=== PATIENT | male | born 1995 | race Two or more races ===

== ENCOUNTER 2021-06-20 14:14 | Emergency (ER) | payer MEDICAID ==
[~2021-06-20] VITALS: Ht 167.6 cm; Wt 101.6 kg
[2021-06-20 15:21] VITALS: BP 130/71
== END 2021-06-20 16:06 | disposition home or self-care (01) ==
LOC: ER 14:14
DX: S61.211D Laceration without foreign body of left index finger without damage to nail, subsequent encounter (principal); X58.XXXD Exposure to other specified factors, subsequent encounter

== ENCOUNTER 2022-02-01 14:35 | Emergency (ER) | payer MEDICAID, OTHER ==
[~2022-02-01] VITALS: Ht 165.1 cm; Wt 93.0 kg
[2022-02-01] MEDS ORDERED: KETOROLAC TROMETH 30 MG/ML 1ML VIAL IV ONE (15:15)
[2022-02-01] MEDS ORDERED: LACTATED RINGER'S 1,000 ML IV ONE (15:15)
[2022-02-01 15:21] LABS: Urine Bacteria NONE SEEN /hpf (None Seen); Urine Blood Negative /uL (Negative); Urine Specific Gravity 1.012 (1.001-1.035); Urine WBC <1 /hpf (0 - 3)
[2022-02-01 16:16] LABS: Basophils # (auto) 0.1 10 ^3/uL (0-0.2); Basophils % (auto) 0.7 % (0.0-2.0); Eosinophils # (auto) 0.4 10 ^3/uL (0-0.8); Hemoglobin 14.6 g/dL (13.5-17.5); Lymphocytes # (auto) 2.9 10 ^3/uL (0.4-5.4); Lymphocytes % (auto) 29.8 % (10.0-50.0); Mean Corpuscular Hemoglobin 30.4 pg (28.0-32.0); Mean Corpuscular Hgb Conc. 34.7 g/dL (32.0-36.0); Mean Corpuscular Volume 87.6 fL (80.0-100.0); Monocytes # (auto) 0.7 10 ^3/uL (0-1.3); Monocytes % (auto) 7.6 % (0.0-12.0); Neutrophils # (auto) 5.7 10 ^3/uL (1.6-8.6); Neutrophils % (auto) 57.9 % (37.0-80.0); Nucleated Red Blood Cells % 0.2 %; Red Cell Distribution Width 13.3 % (11.8-14.3); White Blood Cell 9.8 10^3/uL (4.4-10.8)
[2022-02-01 16:32] LABS: Albumin 3.6 g/dL (3.4-5.0); BUN/Creatinine Ratio 10.8; Calcium 8.6 mg/dL (8.5-10.1); Potassium 3.7 mmol/L (3.5-5.1)
[2022-02-01 16:55] LABS: Bilirubin, Total 0.3 mg/dL (0.2-1.0)
[2022-02-01 17:29] VITALS: BP 122/60
[2022-02-01] MEDS ORDERED: METHOCARBAMOL 500 MG TAB PO ONE (17:45)
[2022-02-01] MEDS ORDERED: KETOROLAC TROMETH 60MG/2ML VIAL IM ONE (17:45)
== END 2022-02-01 18:00 | disposition home or self-care (01) ==
LOC: ER 14:35
DX: M62.830 Muscle spasm of back (principal); R10.11 Right upper quadrant pain
CPT/HCPCS: 36415; 80053; 81001; 85025; J1885

== ENCOUNTER 2024-11-09 09:59 | Inpatient (IN) | payer MEDICAID, OTHER ==
[~2024-11-09] VITALS: Ht 165.1 cm; Wt 119.0 kg
[2024-11-09 10:20] VITALS: PULSE 107; RESP 50; O2SAT 100
[2024-11-09] MEDS: SODIUM CHLORIDE 0.9% 500 ML IV ONE (11:06)
--- NOTE | 2024-11-09 11:09 | DVH ---
CHEST RADIOGRAPH Indication: sob Technique: Single frontal view of the chest was obtained Comparison: None FINDINGS: Lines and Tubes: None Lungs: No focal consolidation. Pleura: No effusion. No pneumothorax. Cardiomediastinal contours: Unremarkable Bones: No acute osseous abnormality. IMPRESSION: 1. No radiographic evidence of acute cardiopulmonary disease. HS:Y
[2024-11-09 11:25] LABS: Basophils # (auto) 0.1 10 ^3/uL (0-0.2); Basophils % (auto) 0.3 % (0.0-2.0); Eosinophils # (auto) 0.2 10 ^3/uL (0-0.8); Eosinophils % (auto) 1.2 % (0.0-7.0); Hematocrit 50.5 % (41.0-53.0); Hemoglobin 17.1 g/dL (13.5-17.5); Lymphocytes # (auto) 1.3 10 ^3/uL (0.4-5.4); Mean Corpuscular Hemoglobin 30.5 pg (28.0-32.0); Mean Corpuscular Volume 89.9 fL (80.0-100.0); Monocytes # (auto) 1.1 10 ^3/uL (0-1.3); Monocytes % (auto) 5.7 % (0.0-12.0); Neutrophils # (auto) 16.5 10 ^3/uL (1.6-8.6); Neutrophils % (auto) 85.8 % (37.0-80.0); Nucleated Red Blood Cells % 0.1 %; Platelet Count (auto) 364 10^3/uL (140-450); Red Blood Cells 5.62 10^6/uL (4.5-5.90); Red Cell Distribution Width 13.6 % (11.8-14.3); White Blood Cell 19.3 10^3/uL (4.4-10.8)
--- NOTE | 2024-11-09 11:30 | DVH ---
INDICATION: pain TECHNIQUE: Multiple real-time sonographic images were obtained of the right upper quadrant. COMPARISON: None FINDINGS: The liver demonstrates slightly increased echogenicity without focal mass lesions. The live r measures 16.8 cm. There is no intrahepatic or extrahepatic ductal dilatation. The common duct papo ures 6 mm. The gallbladder is without evidence of stone or sludge. The gallbladder wall measures 1 mm and is wi thin normal limits. Boiler Coverer Helper notes a negative sonographic chang's sign. The right kidney measures 12.1 cm. The right kidney is normal in contour, size, and shape. The echo genicity is normal. There is no hydronephrosis. The pancreas is not well visualized due to overlying bowel gas. IMPRESSION: 1. No sonographic evidence of gallstones or acute cholecystitis. 2. CBD at upper limit of normal in size. 3. Mildly increased echogenicity of the liver, nonspecific, but most commonly seen in the setting of hepatic steatosis. HS:Y
--- NOTE | 2024-11-09 11:32 | ED.PDOC ---
SOB-HPI HPI Comments 29y M who presents to the ED for chief complaint of shortness of breath. Pt states earlier this AM, he started to have epigastric abdominal pain while using restroom, he felt nauseaous and had vomiting episode. Pt states he tried to go back to rest but states he felt he was going to vomit again and states he went back to restroom and had vomit that was "white, green and red." Pt states after vomiting episode, he felt weak and as if he was going to have syncopal and states he fell to his knees and was able to catch himself before he had a syncopal episode and called father who brought him to the ED. Pt states now in the ED, he denies this near syncopal in the past and denies any recent sick contacts or changes to diet. Pt in the ED, states he started to suddenly have shortness of breath and states he is having 10/10 pain to this lower extremity. Pt is alert and oriented x 4 and able to answer all questions. Pt otherwise denies any other symptoms at this time. Chief Complaint: Shortness of Breath Time Seen by MD: 11:27 Primary Care Provider: UNKNOWN Reviewed notes: Nurses Notes Information Source: Patient Mode of Arrival: Wheelchair Brought in by: father Severity: Moderate Timing: Minutes, Hours Duration: Since onset Context: At Rest, With Light Exertion PE Risk Factors: None History of: None Prehospital treatment: None Modifying Factors: Rest Associated Signs and Symptoms: None If cough with SOB: Clear, White, Green, Brown Past Medical History PAST MEDICAL HISTORY: Denies Surgical History: Denies all surgeries Family History Family History: Reviewed,noncontributory to illness Social History Smoker: Non-Smoker, Secondhand Alcohol: Occasionally Drugs: Denies Drug Use Lives In: Home Constitutional: denies: chills, diaphoresis, fatigue, fever, malaise, sweats, weakness, others EENTM: denies: blurred vision, double vision, ear bleeding, ear discharge, ear drainage, ear pain, ear ringing, eye pain, eye redness, hearing loss, mouth pain, mouth swelling, nasal discharge, nose bleeding, nose congestion, nose pain, photophobia, tearing, throat pain, throat swelling, voice changes, others Respiratory: reports: shortness of breath; denies: cough, hemoptysis, orthopnea, SOB at rest, SOB with excertion, stridor, wheezing, others Cardiovascular: denies: chest pain, dizzy spells, diaphoresis, Dyspnea on exertion, edema, irregular heart beat, left arm pain, lightheadedness, palpitations, PND, syncope, others Gastrointestinal: reports: abdominal pain, nausea, vomiting; denies: abdomen distended, blood streaked bowels, constipated, diarrhea, dysphagia, difficulty swallowing, hematemesis, melena, poor appetite, poor fluid intake, rectal bleeding, rectal pain, others Genitourinary: denies: burning, dysuria, flank pain, frequency, hematuria, incontinence, penile discharge, penile sore, pain, testicle pain, testicle swelling, urgency, others Neurological: denies: fainting, headache, left sided numbness, left sided weakness, numbness, paresthesia, pre-existing deficit, right sided numbness, right sided weakness, seizure, speech problems, tingling, tremors, weakness, others Musculoskeletal: denies: back pain, gout, joint pain, joint swelling, muscle pain, muscle stiffness, neck pain, others Integumetry: denies: bruises, change in color, change in hair/nails, dryness, laceration, lesions, lumps, rash, wounds, others Allergic/Immunocompromised: denies: Difficulty Healing, Frequent Infections, Hives, Itching, others Hematologic/Lymphatic: denies: anemia, blood clots, easy bleeding, easy bruising, swollen glands, others Endocrine: denies: excessive hunger, excessive sweating, excessive thirst, excessive urination, flushing, intolerance to cold, intolerance to heat, unexplained weight gain, unexplained weight loss, others Psychiatric: denies: anxiety, bipolar disorder, depression, hopeless, panic disorder, schizophrenia, sleepless, suicidal, others All Other Systems: Reviewed and Negative Physical Exam General Appearance: Moderate Distress HEENT: Normal ENT Inspection, Pharynx Normal, TMs Normal Neck: Full Range of Motion, Non-Tender, Normal, Normal Inspection Respiratory: Chest Non-Tender, Lungs Clear, No Accessory Muscle Use, No Respiratory Distress, Normal Breath Sounds Cardiovascular: No Edema, No JVD, No Murmur, No Gallop, Tachycardia Breast Exam: Deferred Gastrointestinal: Epigastric, No Organomegaly, No Pulsatile Mass, Normal Bowel Sounds, Soft, Tenderness Genitalia: Deferred Pelvic: Deferred Rectal: Deferred Extremities: No calf tenderness, Normal capillary refill, Normal inspection, Normal range of motion, Non-tender, No pedal edema Musculoskeletal : Apperance: Normal Neurologic: Alert, mail caller II-XII nml as Tested, Motor Weakness, Normal Affect, Normal Mood, No Sensory Deficits Cerebellar Function: Normal Reflexes: Normal Skin: Dry, Normal Color, Warm Lymphatic: No Adenopathy Was a procedure done? Was a procedure done?: No Differential Dx Differential Diagnosis: CHF, Pneumonia, Pulmonary Embolism, Respiratory Distress Comments COVID, pancreatitis, X-Ray, Labs, Meds, VS Vital Signs Date Time Temp Pulse Resp B/P (MAP) Pulse Ox O2 Delivery O2 Flow Rate FiO2 11/09/24 12:00 100 24 136/69 (91) 98 11/09/24 11:00 103 29 130/89 (103) 100 11/09/24 10:20 107 50 100 Room Air* 0 21 11/09/24 10:13 97.5 133 30 165/102 (123) 100 Lab Test 11/09/24 11:10 11/09/24 10:20 Range/Units SARS-CoV-2 Antigen (Rapid) Negative NEGATIVE White Blood Count 19.3 H 4.4-10.8 10^3/uL Red Blood Count 5.62 4.5-5.90 10^6/uL Hemoglobin 17.1 13.5-17.5 g/dL Hematocrit 50.5 41.0-53.0 % Mean Corpuscular Volume 89.9 80.0-100.0 fL Mean Corpuscular Hemoglobin 30.5 28.0-32.0 pg Mean Corpuscular Hemoglobin Concent 34.0 32.0-36.0 g/dL Red Cell Distribution Width 13.6 11.8-14.3 % Platelet Count 364 140-450 10^3/uL Mean Platelet Volume 8.5 6.9-10.8 fL Neutrophils (%) (Auto) 85.8 H 37.0-80.0 % Lymphocytes (%) (Auto) 7.0 L 10.0-50.0 % Monocytes (%) (Auto) 5.7 0.0-12.0 % Eosinophils (%) (Auto) 1.2 0.0-7.0 % Basophils (%) (Auto) 0.3 0.0-2.0 % Neutrophils # (Auto) 16.5 H 1.6-8.6 10 ^3/uL Lymphocytes # (Auto) 1.3 0.4-5.4 10 ^3/uL Monocytes # (Auto) 1.1 0-1.3 10 ^3/uL Eosinophils # (Auto) 0.2 0-0.8 10 ^3/uL Basophils # (Auto) 0.1 0-0.2 10 ^3/uL Nucleated Red Blood Cells 0.1 % D-Dimer, Quantitative 0.29 0.0-0.49 mg/L FEU Sodium Level 140 136-145 mmol/L Potassium Level 3.8 3.5-5.1 mmol/L Chloride Level 105 98-107 mmol/L Carbon Dioxide Level 20 20-31 mmol/L Anion Gap 15 5-15 Blood Urea Nitrogen 13 9-23 mg/dL Creatinine 0.87 0.700-1.30 mg/dL Glomerular Filtration Rate Calc 118 >90 mL/min BUN/Creatinine Ratio 14.9 10.0-20.0 Serum Glucose 112 H 74-106 mg/dL Calcium Level 9.8 8.7-10.4 mg/dL Total Bilirubin 0.8 0.2-1.0 mg/dL Aspartate Amino Transferase (AST) 16 13-40 U/L Alanine Aminotransferase (ALT) 22 7-40 U/L Alkaline Phosphatase 75 46-116 U/L Total Protein 7.8 5.7-8.2 g/dL Albumin 4.8 3.2-4.8 g/dL Lipase 67 H 12-53 U/L Current Medications Medications (Trade) Dose Ordered Sig/David Route Start Time Stop Time Status Last Admin Sodium Chloride 500 ml @ 500 mls/hr Q1H ONCE IV 11/09/24 11:00 11/09/24 11:59 DC 11/09/24 11:06 CHEST RADIOGRAPH IMPRESSION: 1. No radiographic evidence of acute cardiopulmonary disease. The ultrasound of the gallbladder shows: IMPRESSION: 1. No sonographic evidence of gallstones or acute cholecystitis. 2. CBD at upper limit of normal in size. 3. Mildly increased echogenicity of the liver, nonspecific, but most commonly seen in the setting of hepatic steatosis. IV Hep-Lock was established and the patient was given normal saline at a 500 cc bolus The lipase level is 67 The patient was still having some persistent pain so at this time the patient will be admitted to the hospitalist The patient's CBC shows an elevated white blood cell count of 19.3 The rest of the CBC is within normal limits. The patient was also remain tachycardic The patient was being admitted to the hospitalist at this time Images Reviewed?: Images reviewed and evaluated by me Time of 1ST Reevaluation: 12:00 Reevaluation 1ST: Unchanged Patient Education/Counseling: Diagnosis, Treatment Family Education/Counseling: Diagnosis, Treatment Additional Information I reviewed the following notes from patient's past medical encounters: The following tests were ordered, and results were reviewed by me: CBC, CMP, D- dimer, chest x-ray, UA, orthostatics, IV fluids, EKG x 1, COVID test, lipase, ga llbladder US, Additional Information was gathered from interviewing the following independent historians: father I reviewed and agreed with the following test results read by other providers: radiologist I discussed treatment and results with medical personnel and: patient Departure 1 Departure Time of Disposition: 12:40 Impression: Primary Impression: Abdominal pain of unknown etiology Additional Impressions: Tachycardia Generalized weakness Disposition: ADMITTED INPATIENT Admit to: Tele Condition: Fair Critical Care Note Critical Care Time?: No Stability Stability form required: No Heart Score Heart Score: Heart Score Response (Comments) Value History N/A 0 EKG N/A 0 Age N/A 0 Risk Factors N/A 0 Troponin N/A 0 Total 0 I personally scribed for VITALIY PARSON MD ([email or web address]) on 11/09/24 at 11:32. Electronically submitted by Juarez Mckeon ([email or web address]). VITALIY PARSON MD Nov 09, 2024 11:32
[2024-11-09 11:38] LABS: Alanine Aminotransferase 22 U/L (7-40); Alkaline Phosphatase 75 U/L (46-116); Anion Gap 15 (5-15); Aspartate Aminotransferase 16 U/L (13-40); Bilirubin, Total 0.8 mg/dL (0.2-1.0); Calcium 9.8 mg/dL (8.7-10.4); Chloride 105 mmol/L (98-107); Potassium 3.8 mmol/L (3.5-5.1); Sodium 140 mmol/L (136-145); Total Protein 7.8 g/dL (5.7-8.2)
[2024-11-09 11:57] LABS: COVID19 ANTIGEN SOFIA FIA NEGATIVE (NEGATIVE)
[2024-11-09 12:00] LABS: Albumin 4.8 g/dL (3.2-4.8); Carbon Dioxide 20 mmol/L (20-31); Glucose 112 mg/dL (74-106); Lipase 67 U/L (12-53)
[2024-11-09 12:12] LABS: BUN/Creatinine Ratio 14.9 (10.0-20.0); Blood Urea Nitrogen 13 mg/dL (9-23)
[2024-11-09] MEDS ORDERED: ONDANSETRON HCL 4 MG/2 ML VIAL IV PRN (13:30)
[2024-11-09] MEDS ORDERED: ACETAMINOPHEN 325 MG TAB PO PRN (13:30)
[2024-11-09] MEDS ORDERED: MORPHINE SULFATE INJ 2 MG/ml SYRG IV PRN (13:30)
[2024-11-09] MEDS ORDERED: NITROGLYCERIN 0.4 MG SL TAB SL PRN (13:30)
[2024-11-09] MEDS ORDERED: DOCUSATE SOD 100 MG CAP PO PRN (13:30)
--- NOTE | 2024-11-09 13:43 | DVHHP2 ---
History of Present Illness Reason for Visit: Shortness of breath History of Present Illness Dick Hernandez is a 29-year-old male with no significant past medical history, who comes in due to do nausea, vomiting, and diarrhea. Patient states he felt okay this morning when he got up for work. Shortly after arriving at work his stomach began to hurt and he needed to have a bowel movement. He had diarrhea, then needed to vomit. States he felt better for a few minutes, then needed to go back to the bathroom. He had diarrhea again, then vomited 3 times. He states while vomiting he felt like he was going to pass out. He grabbed the safety bar and went down to his knees. States he did not lose consciousness or hit his head. He then had his dad take him to the ER. While waiting in the ER waiting room he states that he began to feel weak again, he felt like he was going to fall out of the chair, started to slide out of it, then the next thing he remembers is people standing over him telling him to wake up. Upon arrival to his bed in ER he was very tachypneic and tachycardic. On assessment he remains tachycardic and slightly tachypneic. Past Surgical History: None Family History: None Smoke: No ALCOHOL: occassional Drugs: None Lives: Roommate Domestic Violence: Neg Review of Systems Constitutional: No: Fever, Chills, Sweats, Weakness, Malaise, Other Eyes: No: Pain, Vision change, Conjunctivae inflammation, Eyelid inflammation, Other, Redness ENT: No: Ear pain, Ear discharge, Nose pain, Nose discharge, Nose congestion, Mouth pain, Mouth swelling, Throat pain, Throat swelling, Other Respiratory: Shortness of breath, SOB with excertion; No: Cough, Dry, Wheezing, Hemoptysis, Pleuritic Pain, Sputum, Wheezing, Other Cardiovascular: No: Chest Pain, Palpitations, Orthopnea, Paroxysmal Noc. Dyspnea, Edema, Lt Headedness, Other Gastrointestinal: Nausea, Vomiting, Abdominal Pain, Diarrhea; No: Constipation, Melena, Hematochezia, Other Genitourinary: No Dysuria, No Frequency, No Incontinence, No Hematuria, No Retention, No Other Musculoskeletal: No: other, neck pain, shoulder pain, arm pain, back pain, hand pain, leg pain, foot pain Skin: No: Rash, Lesions, Jaundice, Bruising, Other Neurological: No: Weakness, Numbness, Incoordination, Change in speech, Confusion, Seizures, Other Allergies: Coded Allergies: NO KNOWN ALLERGIES (Unverified , 08/04/11) Medications Current Medications Medications Dose Ordered Sig/David Route Start Time Stop Time Status Last Admin Dose Admin Acetaminophen/ Hydrocodone Bitart 1 tab Q4HP PRN PO 11/09/24 13:30 UNV Ondansetron HCl 4 mg Q4HP PRN IV 11/09/24 13:30 UNV Exam Vital Signs Vital Signs Date Time Temp Pulse Resp B/P (MAP) Pulse Ox O2 Delivery O2 Flow Rate FiO2 11/09/24 12:41 107 11/09/24 12:00 24 136/69 (91) 98 11/09/24 10:20 Room Air* 0 21 11/09/24 10:13 97.5 General Appearance: Alert, Oriented X3, Cooperative, mild distress HEENT: Atraumatic, PERRLA Respiratory: Clear to auscultation, Normal air movement Cardiovascular: Normal S1, Normal S2, Other (Tachycardia) Abdominal: Normal bowel sounds, Soft, Other (epigastric pain, nausea) Extremities: No clubbing, No cyanosis, No edema, Normal pulses Skin: No rashes, No breakdown, No significant lesion Neuro: Normal gait, Normal speech, Strength at 5/5 X4 ext Psych/Mental Status: Mental status NL, Mood NL Labs/Xrays Labs Test 11/09/24 11:10 11/09/24 10:20 Range/Units SARS-CoV-2 Antigen (Rapid) Negative NEGATIVE White Blood Count 19.3 H 4.4-10.8 10^3/uL Red Blood Count 5.62 4.5-5.90 10^6/uL Hemoglobin 17.1 13.5-17.5 g/dL Hematocrit 50.5 41.0-53.0 % Mean Corpuscular Volume 89.9 80.0-100.0 fL Mean Corpuscular Hemoglobin 30.5 28.0-32.0 pg Mean Corpuscular Hemoglobin Concent 34.0 32.0-36.0 g/dL Red Cell Distribution Width 13.6 11.8-14.3 % Platelet Count 364 140-450 10^3/uL Mean Platelet Volume 8.5 6.9-10.8 fL Neutrophils (%) (Auto) 85.8 H 37.0-80.0 % Lymphocytes (%) (Auto) 7.0 L 10.0-50.0 % Monocytes (%) (Auto) 5.7 0.0-12.0 % Eosinophils (%) (Auto) 1.2 0.0-7.0 % Basophils (%) (Auto) 0.3 0.0-2.0 % Neutrophils # (Auto) 16.5 H 1.6-8.6 10 ^3/uL Lymphocytes # (Auto) 1.3 0.4-5.4 10 ^3/uL Monocytes # (Auto) 1.1 0-1.3 10 ^3/uL Eosinophils # (Auto) 0.2 0-0.8 10 ^3/uL Basophils # (Auto) 0.1 0-0.2 10 ^3/uL Nucleated Red Blood Cells 0.1 % D-Dimer, Quantitative 0.29 0.0-0.49 mg/L FEU Sodium Level 140 136-145 mmol/L Potassium Level 3.8 3.5-5.1 mmol/L Chloride Level 105 98-107 mmol/L Carbon Dioxide Level 20 20-31 mmol/L Anion Gap 15 5-15 Blood Urea Nitrogen 13 9-23 mg/dL Creatinine 0.87 0.700-1.30 mg/dL Glomerular Filtration Rate Calc 118 >90 mL/min BUN/Creatinine Ratio 14.9 10.0-20.0 Serum Glucose 112 H 74-106 mg/dL Calcium Level 9.8 8.7-10.4 mg/dL Total Bilirubin 0.8 0.2-1.0 mg/dL Aspartate Amino Transferase (AST) 16 13-40 U/L Alanine Aminotransferase (ALT) 22 7-40 U/L Alkaline Phosphatase 75 46-116 U/L Total Protein 7.8 5.7-8.2 g/dL Albumin 4.8 3.2-4.8 g/dL Lipase 67 H 12-53 U/L Multiple real-time sonographic images were obtained of the right upper quadrant. COMPARISON: None FINDINGS: The liver demonstrates slightly increased echogenicity without focal mass lesions. The liver measures 16.8 cm. There is no intrahepatic or extrahepatic ductal dilatation. The common duct measures 6 mm. The gallbladder is without evidence of stone or sludge. The gallbladder wall measures 1 mm and is within normal limits. Reptile Keeper notes a negative sonographic chang's sign. The right kidney measures 12.1 cm. The right kidney is normal in contour, size, and shape. The echogenicity is normal. There is no hydronephrosis. The pancreas is not well visualized due to overlying bowel gas. IMPRESSION: 1. No sonographic evidence of gallstones or acute cholecystitis. 2. CBD at upper limit of normal in size. 3. Mildly increased echogenicity of the liver, nonspecific, but most commonly seen in the setting of hepatic steatosis. CHEST RADIOGRAPH FINDINGS: Lines and Tubes: None Lungs: No focal consolidation. Pleura: No effusion. No pneumothorax. Cardiomediastinal contours: Unremarkable Bones: No acute osseous abnormality. IMPRESSION: 1. No radiographic evidence of acute cardiopulmonary disease. Assessment/Plan Assessment/Plan Assessment: Abdominal pain of unknown etiology, Syncopal episodes, Possible gastritis, Leukocytosis, Plan: Admit to Tele, GI consult, Cardiology consult, Consider neurology consult for syncopal episode, IV hydration, IV antibiotics, Carotid duplex bilateral, TSH, A1c, Fall risk, Plan discussed with: Patient My Orders Orders - MELVIN LEIVA HIGHER LEVEL TEACHING ASSISTANT Procedure Category Date Status Time Admit ADMIT 11/09/24 Transmitted 13:21 Code Status CODE 11/09/24 Transmitted 13:21 Hydrocodone-Acet PHA 11/09/24 Logged 5/325mg Tab ([place] 13:30 Ondansetron Hcl PHA 11/09/24 Transmitted (Zofran) 13:30 Docusate Sodium PHA 11/09/24 Transmitted Capsule (Colace 13:30 Fall Risk Precautions TONYA 11/09/[address] 13:21 Complete Blood Count LAB 11/10/24 Verified 04:00 Comprehensive LAB 11/10/24 Verified Metabolic Panel 04:00 Carotid Duplx W Color US 11/09/24 Logged DOP 13:21 Condition: Serious TONYA 11/09/24 In Process 13:21 Acetaminophen Tablet PHA 11/09/24 Transmitted (Tylenol Tablet) 13:30 Nitroglycerin PHA 11/09/24 Transmitted Sublingual (Ntrostat 13:30 Morphine Sulfate PHA 11/09/24 Transmitted Injection 13:30 Stat Ekg For Chest TONYA 11/09/24 In Process Pain 13:21 Notify Of Changes TONYA 11/09/24 In Process From Base 13:21 Chief Technologist For TONYA 11/09/24 In Process 24 Hours 13:21 Emergency Dysrhythmia [facility] 11/09/24 In Process Protocol 13:21 Rhythm Strips Once [facility] 11/09/24 In Process Every Shift 13:21 Oxygen By Nasal RT 11/09/24 Transmitted Cannula 13:21 * Gi Dvh Acidity Tester CONS 11/09/24 Transmitted 13:21 * Cardiology Consult CONS 11/09/24 Transmitted 13:21 Date of Service: Nov 09, 2024 Billing Provider: MELVIN LEIVA Common Visit Codes: [id number] INP/OBS CARE (MOD) MELVIN LEIVA Nov 09, 2024 13:43
[2024-11-09] MEDS: SODIUM CHLORIDE 0.9% 1,000 ML IV ONE (14:21)
--- NOTE | 2024-11-09 14:29 | DVH ---
Carotid Duplex Date: 11/09/2024 02:00 PM Clinical History: Syncopal episodes Comparison: None Technique: Duplex Doppler evaluation of the extracranial carotid and vertebral arteries including color Doppler and spectral/pulsed waveform analysis was performed. Findings: RIGHT SIDE: The peak systolic velocities are 103 cm/s in the distal CCA and 93 cm/s in the proximal ICA.The ICA/C CA ratio is less than 1. The external carotid artery is patent with peak systolic velocity of 138 cm/s proximally. There is appropriate antegrade flow in the right vertebral artery. LEFT SIDE: The peak systolic velocities are 104 cm/s in the distal CCA and 93 cm/s in the proximal ICA.. The IC A/CCA ratio is less than 1. The external carotid artery is patent with peak systolic velocity of 136 cm/s proximally. There is appropriate antegrade flow in the left vertebral artery. IMPRESSION: 1. No hemodynamically significant stenosis noted in the right carotid system. 2. No hemodynamically significant stenosis noted in the left carotid system. 3. Reference: Radiology 2003; [id number] HS:Y
[2024-11-09] MEDS ORDERED: cefTRIAXone 1GM/50ML D5W 50 ML IV ONE (14:30)
[2024-11-09] MEDS: cefTRIAXone 1GM/50ML D5W 50 ML IV SCH (14:40)
--- NOTE | 2024-11-09 14:41 | DVHINCON2 ---
Date Seen: Nov 09, 2024 Referring Physician MONTSE Bryant Reason for Consultation Syncopal episode History of Present Illness This is a 29-year-old male patient who presents to emergency room with multiple chief complaints. The patient reports that on his way to work this morning at approximately 8:00 a.m. he began to experience epigastric pain. He reports shortly after having to use the restroom in which he noted new onset of diarrhea. Shortly after that, the patient reports feeling nauseous then had an episode where he vomited. While at work, the patient continued to feel abdominal pain and generalized weakness. He states that he had multiple episodes of emesis. While at work he reports grabbing onto a hand rail and having an assisted fall in which he did not hit his head or lose consciousness. The patient called his father and was brought to the emergency room for further evaluation. While in the emergency room waiting area, he reports feeling short of breath. Subsequently, he has another syncopal episode, but this time loss consciousness and only remembers waking up to people surrounding him. Cardiology has now been consulted for syncopal episodes. Initial twelve lead electrocardiogram reveals sinus tachycardia with notable Q-waves to inferior leads. Patient denies any significant past medical history. Past Medical History Denies all past medical history Past Surgical History Denies all surgeries Family History Family history reviewed. Social History Occasional social alcohol use Denies any illicit drug use Denies any tobacco use Allergies: Coded Allergies: NO KNOWN ALLERGIES (Unverified , 08/04/11) Home Meds Denies taking any prescribed home medications Current Medications Current Medications Medications (Trade) Dose Ordered Sig/David Route PRN Reason Start Time Stop Time Status Last Admin Acetaminophen/ Hydrocodone Bitart ([place] 5/325MG Tab) 1 tab Q4HP PRN PO MODERATE PAIN (4-6 PAIN SCALE) 11/09/24 13:30 Ondansetron HCl (Zofran) 4 mg Q4HP PRN IV NAUSEA / VOMITING 11/09/24 13:30 Docusate Sodium (Colace Capsule) 100 mg BIDPRN PRN PO FOR CONSTIPATION 11/09/24 13:30 Acetaminophen (Tylenol Tablet) 650 mg Q6HP PRN PO PAIN SCALE 1-3 OR TEMP>100.4 11/09/24 13:30 Nitroglycerin (Ntrostat Sublingual) 0.4 mg Q5MINP PRN SL FOR CHEST PAIN 11/09/24 13:30 Morphine Sulfate 2 mg Q30M PRN IV FOR CHEST PAIN 11/09/24 13:30 Metronidazole 100 ml @ 100 mls/hr Q8HR IV 11/09/24 14:00 Ceftriaxone Sodium 50 ml @ 100 mls/hr DAILY@09 IV 11/09/24 14:02 Review of Systems Constitutional: Generalized weakness Ears, Nose, & Throat: No symptom reported Eyes: No symptom reported Neurological: Syncope Pulmonary/Respiratory: Shortness of breath Cardiovascular: No symptom reported Gastrointestinal: Diarrhea, nausea and vomiting Genitourinary: No symptom reported Musculoskeletal: No symptom reported Skin: No symptom reported Psychiatric: No symptom reported Endocrine: No symptom reported Hematologic/Lymphatic: No symptom reported Vital Signs Vital Signs Date Time Temp Pulse Resp B/P (MAP) Pulse Ox O2 Delivery O2 Flow Rate FiO2 11/09/24 12:41 107 11/09/24 12:00 136/69 (91) 98 11/09/24 10:20 Room Air* 0 21 11/09/24 10:13 97.5 Physical Exam General Appearance: Cooperative. Morbidly obese Pulmonary/Respiratory: Clear, bilateral breaths sounds. Cardiovascular/Chest: Regular rate and rhythm. Peripheral Pulses: 2+ Radial (R). 2+ Radial (L). 2+ Pedal (R). 2+ Pedal (L) Abdominal Exam: Normal bowel sounds. Ankle Exam: Negative ankle edema Lower extremities: Negative lower extremity edema Neuro/Mental Status: A/OX4, coherent. Thoughts/Psych: Normal thought pattern. Appropriate mood and affect. Good judgment and insight. Appearance: No acute distress. Skin Exam: Normal inspection. Normal color. Warm and dry. Labs/Diagnostic Data Labs Test 11/09/24 11:10 11/09/24 10:20 Range/Units SARS-CoV-2 Antigen (Rapid) Negative NEGATIVE White Blood Count 19.3 H 4.4-10.8 10^3/uL Red Blood Count 5.62 4.5-5.90 10^6/uL Hemoglobin 17.1 13.5-17.5 g/dL Hematocrit 50.5 41.0-53.0 % Mean Corpuscular Volume 89.9 80.0-100.0 fL Mean Corpuscular Hemoglobin 30.5 28.0-32.0 pg Mean Corpuscular Hemoglobin Concent 34.0 32.0-36.0 g/dL Red Cell Distribution Width 13.6 11.8-14.3 % Platelet Count 364 140-450 10^3/uL Mean Platelet Volume 8.5 6.9-10.8 fL Neutrophils (%) (Auto) 85.8 H 37.0-80.0 % Lymphocytes (%) (Auto) 7.0 L 10.0-50.0 % Monocytes (%) (Auto) 5.7 0.0-12.0 % Eosinophils (%) (Auto) 1.2 0.0-7.0 % Basophils (%) (Auto) 0.3 0.0-2.0 % Neutrophils # (Auto) 16.5 H 1.6-8.6 10 ^3/uL Lymphocytes # (Auto) 1.3 0.4-5.4 10 ^3/uL Monocytes # (Auto) 1.1 0-1.3 10 ^3/uL Eosinophils # (Auto) 0.2 0-0.8 10 ^3/uL Basophils # (Auto) 0.1 0-0.2 10 ^3/uL Nucleated Red Blood Cells 0.1 % D-Dimer, Quantitative 0.29 0.0-0.49 mg/L FEU Sodium Level 140 136-145 mmol/L Potassium Level 3.8 3.5-5.1 mmol/L Chloride Level 105 98-107 mmol/L Carbon Dioxide Level 20 20-31 mmol/L Anion Gap 15 5-15 Blood Urea Nitrogen 13 9-23 mg/dL Creatinine 0.87 0.700-1.30 mg/dL Glomerular Filtration Rate Calc 118 >90 mL/min BUN/Creatinine Ratio 14.9 10.0-20.0 Serum Glucose 112 H 74-106 mg/dL Calcium Level 9.8 8.7-10.4 mg/dL Total Bilirubin 0.8 0.2-1.0 mg/dL Aspartate Amino Transferase (AST) 16 13-40 U/L Alanine Aminotransferase (ALT) 22 7-40 U/L Alkaline Phosphatase 75 46-116 U/L Total Protein 7.8 5.7-8.2 g/dL Albumin 4.8 3.2-4.8 g/dL Lipase 67 H 12-53 U/L Assessment Syncope likely secondary to vasovagal episode Rule out structural heart disease ?Viral gastritis Dyslipidemia, newly diagnosed Morbid obesity Plan/Recommendation We will continue following plan/recommendations (Dr. Huggisn): We will obtain a transthoracic echocardiogram to evaluate cardiac function. Patient syncope likely secondary to vasovagal episode from dehydration. Bilateral carotid duplex negative for any significant stenosis in the right or left carotid system. The patient was found to have dyslipidemia, we will initiate aggressive statin therapy. In the setting of an unremarkable echocardiogram, there is no further inpatient cardiac workup indicated this time. The patient should have cardiac workup in the outpatient setting given notable Q-waves to inferior leads seen on twelve lead electrocardiogram. Thank you for allowing us to care for this patient. Please call with any questions or concerns. Critical care time spent: 41 minutes This medical document was created using an electronic medical record system with voice recognition software and computerized dictation system. Although this document has been carefully reviewed, there might still be some phonetic and typographical errors. Occasional wrong-word or ``sound-alike substitutions may have occurred due to the inherent limitations of voice recognition software. These areas are purely typographical due to imperfections of the software programs and do not reflect any compromise in the patient's medical care. Please read the chart carefully and recognize, using context, where these substitutions have occurred. Plan discussed with: Patient Date of Service: Nov 09, 2024 Billing Provider: TAZ HUGGINS MD Cardiology Common Codes: [id number] INP/OBS CARE (High) Cardiology Consultation Codes: [id number] CONSULT <45MIN TERA ASHBY Nov 09, 2024 14:41
[2024-11-09 15:01] LABS: Urine Bacteria None Seen /hpf (None Seen)
[2024-11-09] MEDS: metroNIDAZOLE 500MG/100ML 100 ML IV SCH (15:03)
[2024-11-09 15:09] LABS: Urine Blood Negative /uL (Negative); Urine Clarity Clear (Clear); Urine Color Yellow (Yellow); Urine Mucus FEW (None Seen); Urine Protein, UAD TRACE (Negative); Urine Specific Gravity 1.031 (1.001-1.035); Urine Urobilinogen Normal (Negative); Urine WBC <1 /hpf (0 - 3)
[2024-11-09 15:29] LABS: Amphetamine Screen, Urine Neg (NEGATIVE); Barbiturate Scree,Urine Neg (NEGATIVE); Benzodiazephine Screen, Urine Neg (NEGATIVE); Cannabinoid Screen, Urine Neg (NEGATIVE); Cocaine Screen, Urine Neg (NEGATIVE); Opiate Scree,Urine Neg (NEGATIVE); Phencyclidine Screen, Urine Neg (NEGATIVE)
[2024-11-09 15:30] LABS: Magnesium 1.7 mg/dL (1.6-2.6)
[2024-11-09] MEDS: HYDROcodone-ACET 5/325MG TAB PO PRN (18:52)
[2024-11-09 19:15] VITALS: PULSE 107; RESP 15; O2SAT 100
--- NOTE | 2024-11-09 20:15 | DVHINCON2 ---
Date of service: Nov 09, 2024 Referring Physician Kathi Bryant Reason for Consultation Abdominal pain and diarrhea History of Present Illness This is a 29-year-old male patient who presents to emergency room with multiple chief complaints. The patient reports that on his way to work this morning at approximately 8:00 a.m. he began to experience epigastric pain. He reports shortly after having to use the restroom in which he noted new onset of diarrhea. Shortly after that, the patient reports feeling nauseous then had an episode where he vomited. While at work, the patient continued to feel abdominal pain and generalized weakness. He states that he had multiple episodes of emesis. While at work he reports grabbing onto a hand rail and having an assisted fall in which he did not hit his head or lose consciousness. The patient called his father and was brought to the emergency room for further evaluation. While in the emergency room waiting area, he reports feeling short of breath. Subsequently, he has another syncopal episode, but this time loss consciousness and only remembers waking up to people surrounding him. GI was consulted because of episodes of epigastric pain nausea and some diarrhea and possible dehydration Allergies: Coded Allergies: NO KNOWN ALLERGIES (Unverified , 08/04/11) Current Medications Current Medications Medications (Trade) Dose Ordered Sig/David Route PRN Reason Start Time Stop Time Status Last Admin Acetaminophen/ Hydrocodone Bitart ([place] 5/325MG Tab) 1 tab Q4HP PRN PO MODERATE PAIN (4-6 PAIN SCALE) 11/09/24 13:30 11/09/24 18:52 Ondansetron HCl (Zofran) 4 mg Q4HP PRN IV NAUSEA / VOMITING 11/09/24 13:30 Docusate Sodium (Colace Capsule) 100 mg BIDPRN PRN PO FOR CONSTIPATION 11/09/24 13:30 Acetaminophen (Tylenol Tablet) 650 mg Q6HP PRN PO PAIN SCALE 1-3 OR TEMP>100.4 11/09/24 13:30 Nitroglycerin (Ntrostat Sublingual) 0.4 mg Q5MINP PRN SL FOR CHEST PAIN 11/09/24 13:30 Morphine Sulfate 2 mg Q30M PRN IV FOR CHEST PAIN 11/09/24 13:30 Metronidazole 100 ml @ 100 mls/hr Q8HR IV 11/09/24 14:00 11/09/24 15:03 Ceftriaxone Sodium 50 ml @ 100 mls/hr DAILY@09 IV 11/09/24 14:02 11/09/24 14:40 Atorvastatin Calcium (Lipitor) 40 mg HS PO 11/09/24 22:00 Vital Signs Vital Signs Date Time Temp Pulse Resp B/P (MAP) Pulse Ox O2 Delivery O2 Flow Rate FiO2 11/09/24 19:15 107 15 100 Room Air* 0 21 11/09/24 19:07 124/79 (94) 11/09/24 10:13 97.5 Physical Exam General Appearance: Alert, Oriented X3, Cooperative, mild distress HEENT: Atraumatic, PERRLA Respiratory: Clear to auscultation, Normal air movement Cardiovascular: Normal S1, Normal S2, Other (Tachycardia) Abdominal: Normal bowel sounds, Soft, Other (epigastric pain, nausea) Extremities: No clubbing, No cyanosis, No edema, Normal pulses Skin: No rashes, No breakdown, No significant lesion Neuro: Normal gait, Normal speech, Strength at 5/5 X4 ext Psych/Mental Status: Mental status NL, Mood NL Labs/Diagnostic Data Labs Test 11/09/24 14:14 11/09/24 11:10 11/09/24 10:20 Range/Units Urine Color Yellow Yellow Urine Clarity Clear Clear Urine pH 7.0 5.0-9.0 Urine Specific [place] 1.031 1.001-1.035 Urine Protein Trace H Negative Urine Ketones Trace Negative Urine Blood Negative Negative /uL Urine Nitrite Negative Negative Urine Bilirubin Negative Negative Urine Urobilinogen Normal Negative mg/dL Urine Leukocyte Esterase Negative Negative /uL Urine RBC 1 0 - 3 /hpf Urine WBC <1 0 - 3 /hpf Urine Squamous Epithelial Cells None seen <5 /hpf Urine Bacteria None seen None Seen /hpf Urine Mucus Few None Seen Urine Glucose Normal Normal mg/dL Urine Opiates Screen Neg NEGATIVE Urine Fentanyl Screen Neg NEGATIVE Urine Barbiturates Screen Neg NEGATIVE Urine Phencyclidine Screen Neg NEGATIVE Urine Amphetamines Screen Neg NEGATIVE Urine Benzodiazepines Screen Neg NEGATIVE Urine Cocaine Screen Neg NEGATIVE Urine Cannabinoids Screen Neg NEGATIVE SARS-CoV-2 Antigen (Rapid) Negative NEGATIVE White Blood Count 19.3 H 4.4-10.8 10^3/uL Red Blood Count 5.62 4.5-5.90 10^6/uL Hemoglobin 17.1 13.5-17.5 g/dL Hematocrit 50.5 41.0-53.0 % Mean Corpuscular Volume 89.9 80.0-100.0 fL Mean Corpuscular Hemoglobin 30.5 28.0-32.0 pg Mean Corpuscular Hemoglobin Concent 34.0 32.0-36.0 g/dL Red Cell Distribution Width 13.6 11.8-14.3 % Platelet Count 364 140-450 10^3/uL Mean Platelet Volume 8.5 6.9-10.8 fL Neutrophils (%) (Auto) 85.8 H 37.0-80.0 % Lymphocytes (%) (Auto) 7.0 L 10.0-50.0 % Monocytes (%) (Auto) 5.7 0.0-12.0 % Eosinophils (%) (Auto) 1.2 0.0-7.0 % Basophils (%) (Auto) 0.3 0.0-2.0 % Neutrophils # (Auto) 16.5 H 1.6-8.6 10 ^3/uL Lymphocytes # (Auto) 1.3 0.4-5.4 10 ^3/uL Monocytes # (Auto) 1.1 0-1.3 10 ^3/uL Eosinophils # (Auto) 0.2 0-0.8 10 ^3/uL Basophils # (Auto) 0.1 0-0.2 10 ^3/uL Nucleated Red Blood Cells 0.1 % D-Dimer, Quantitative 0.29 0.0-0.49 mg/L FEU Sodium Level 140 136-145 mmol/L Potassium Level 3.8 3.5-5.1 mmol/L Chloride Level 105 98-107 mmol/L Carbon Dioxide Level 20 20-31 mmol/L Anion Gap 15 5-15 Blood Urea Nitrogen 13 9-23 mg/dL Creatinine 0.87 0.700-1.30 mg/dL Glomerular Filtration Rate Calc 118 >90 mL/min BUN/Creatinine Ratio 14.9 10.0-20.0 Serum Glucose 112 H 74-106 mg/dL Hemoglobin A1c 5.2 <5.7 % A1C Calcium Level 9.8 8.7-10.4 mg/dL Magnesium Level 1.7 1.6-2.6 mg/dL Total Bilirubin 0.8 0.2-1.0 mg/dL Aspartate Amino Transferase (AST) 16 13-40 U/L Alanine Aminotransferase (ALT) 22 7-40 U/L Alkaline Phosphatase 75 46-116 U/L Total Protein 7.8 5.7-8.2 g/dL Albumin 4.8 3.2-4.8 g/dL Triglycerides Level 198 H < 150 mg/dL Cholesterol Level 222 H < 200 mg/dL LDL Cholesterol 163 H < 100 mg/dL HDL Cholesterol 44 40-59 mg/dL Lipase 67 H 12-53 U/L Thyroid Stimulating Hormone (TSH) 1.51 0.55-4.78 uIU/mL Carotid doppler IMPRESSION: 1. No hemodynamically significant stenosis noted in the right carotid system. 2. No hemodynamically significant stenosis noted in the left carotid system. GB USG IMPRESSION: 1. No sonographic evidence of gallstones or acute cholecystitis. 2. CBD at upper limit of normal in size. 3. Mildly increased echogenicity of the liver, nonspecific, but most commonly seen in the setting of hepatic steatosis. Problems(with codes): (1) Vasovagal syncope (2) Dehydration (3) Diarrhea (4) Generalized weakness (5) Tachycardia (6) Abdominal pain of unknown etiology (7) Syncopal episodes (8) Pancreatitis (9) Leukocytosis Plan/Recommendation Assessment and plan Patient appears to have had be go nasal syncope from dehydration He has underlying viral gastroenteritis Continue IV fluid hydration He is on broad-spectrum antibiotics We will give him PPI Zofran Monitor labs Patient is undergoing cardiac workup including echocardiogram and a Doppler was done If symptoms persist I will be standing by for an endoscopy Continue IV fluid hydration Clear liquid diet advance as tolerated I will follow up patient with you Plan discussed with: Patient, Other (Dr Bryant) VAHE SIMS MD Nov 09, 2024 20:15
[2024-11-09] MEDS: ATORVASTATIN 20 MG TAB PO SCH (21:33)
[2024-11-10 03:32] LABS: Basophils # (auto) 0 10 ^3/uL (0-0.2); Basophils % (auto) 0.4 % (0.0-2.0); Eosinophils # (auto) 0.1 10 ^3/uL (0-0.8); Eosinophils % (auto) 1.3 % (0.0-7.0); Hematocrit 43.2 % (41.0-53.0); Hemoglobin 14.8 g/dL (13.5-17.5); Lymphocytes # (auto) 1.9 10 ^3/uL (0.4-5.4); Lymphocytes % (auto) 19.9 % (10.0-50.0); Mean Corpuscular Hemoglobin 30.4 pg (28.0-32.0); Mean Corpuscular Hgb Conc. 34.2 g/dL (32.0-36.0); Mean Corpuscular Volume 88.9 fL (80.0-100.0); Monocytes # (auto) 0.8 10 ^3/uL (0-1.3); Monocytes % (auto) 8.6 % (0.0-12.0); Neutrophils # (auto) 6.7 10 ^3/uL (1.6-8.6); Neutrophils % (auto) 69.8 % (37.0-80.0); Platelet Count (auto) 274 10^3/uL (140-450); Red Blood Cells 4.86 10^6/uL (4.5-5.90); Red Cell Distribution Width 13.5 % (11.8-14.3); White Blood Cell 9.7 10^3/uL (4.4-10.8)
[2024-11-10 03:55] LABS: Alanine Aminotransferase 16 U/L (7-40); Albumin 3.9 g/dL (3.2-4.8); Alkaline Phosphatase 58 U/L (46-116); Anion Gap 7 (5-15); Aspartate Aminotransferase 15 U/L (13-40); BUN/Creatinine Ratio 11.7 (10.0-20.0); Bilirubin, Total 0.6 mg/dL (0.2-1.0); Blood Urea Nitrogen 9 mg/dL (9-23); Calcium 8.6 mg/dL (8.7-10.4); Carbon Dioxide 26 mmol/L (20-31); Chloride 108 mmol/L (98-107); Glucose 93 mg/dL (74-106); Potassium 3.5 mmol/L (3.5-5.1); Sodium 141 mmol/L (136-145); Total Protein 6.3 g/dL (5.7-8.2)
[2024-11-10 04:30] VITALS: PULSE 93; RESP 18; O2SAT 95
[2024-11-10 06:15] VITALS: PULSE 62; RESP 20
[2024-11-10 08:00] VITALS: PULSE 83
[2024-11-10 09:13] VITALS: BP 114/51; PULSE 85; RESP 16; TEMP 98.2; O2SAT 97
[2024-11-10 10:42] LABS: Lactic Acid w/Reflex 2.1 mmol/L (0.4-2.0)
--- NOTE | 2024-11-10 11:24 | DVHPNRES ---
Progress Note Date Seen: Nov 10, 2024 Resident Creating Document: DUY MURILLO Has the PT tested + for MRSA If YES, has PT been informed?: No Medical Necessity Reason Pt with a Central, PICC or Fol: No Subjective Patient reports: No new complaints Changes from previous H/P or p: No Changes Objective vital signs Vital Sign Date Time Temp Pulse Resp B/P (MAP) Pulse Ox O2 Delivery O2 Flow Rate FiO2 11/10/24 09:13 98.2 85 16 114/51 (72) 97 98.2 11/10/24 06:15 Room Air* 0 21 Total Intake and Output 11/09/24 11/09/24 11/10/24 15:00 23:00 07:00 Intake Total 1000 ml 1150 ml Balance 1000 ml 1150 ml medications Current Medications Medications Dose Ordered Sig/David Route Start Time Stop Time Status Last Admin Dose Admin Acetaminophen/ Hydrocodone Bitart 1 tab Q4HP PRN PO 11/09/24 13:30 11/09/24 18:52 1 TAB Ondansetron HCl 4 mg Q4HP PRN IV 11/09/24 13:30 Docusate Sodium 100 mg BIDPRN PRN PO 11/09/24 13:30 Acetaminophen 650 mg Q6HP PRN PO 11/09/24 13:30 Nitroglycerin 0.4 mg Q5MINP PRN SL 11/09/24 13:30 Morphine Sulfate 2 mg Q30M PRN IV 11/09/24 13:30 Metronidazole 100 ml @ 100 mls/hr Q8HR IV 11/09/24 14:00 11/10/24 06:00 100 MLS/HR Ceftriaxone Sodium 50 ml @ 100 mls/hr DAILY@09 IV 11/09/24 14:02 11/09/24 14:40 100 MLS/HR Atorvastatin Calcium 40 mg HS PO 11/09/24 22:00 11/09/24 21:33 40 MG laboratory and microbiology Laboratory Tests 11/10/24 03:13 Test 11/10/24 03:13 Range/Units Serum Glucose 93 74-106 mg/dL Labs and/or images reviewed: Labs reviewed by me, Image(s) reviewed by me Problem List/Assessment/Plan Plan discussed with: Other (RN) DUY MURILLO Nov 10, 2024 11:24
[2024-11-10] MEDS: SODIUM CHLORIDE 0.9% 1,000 ML IV ONE (12:15)
[2024-11-10 12:36] VITALS: BP 120/59; PULSE 89; RESP 18; TEMP 98.4; O2SAT 98
--- NOTE | 2024-11-10 13:56 | DVHSR ---
APPROVED REPORT EXAM: Two-dimensional and M-mode echocardiogram with Doppler and color Doppler. Blood Pressure: 125/63 mmHg INDICATION Eval for cardiac function RISK FACTORS Height: 65, Weight: 262 DIMENSIONS LVDd5.4 (3.8-5.7cm)LA (2D) (1.9-4.0cm)Aortic Root4.1 (2.0-3.7cm) LVDs4.0 (2.5-4.0cm)LA (MM) (1.9-4.0cm)Aortic Cusp Exc2.4 (1.5-2.0cm) EF (%) 50.0 (55-70%)Rt. Atrium (1.9-4.0cm)Asc. Aorta cm Mitral Valve MitralMitral Stenosis E wave0.85m/sMV Mean GR.mmHg A wave0.59m/sMV Peak GR.100mmHg E/A ratio1.42D MVAcm2 DECEL [id number] 1/2 Dobd23xm IVRTmsDop MVA4.14cm2 Aortic Valve Aortic ValveAortic Stenosis V11.03m/Mark Mean GR.4mmHg V21.38m/Mark Peak GR.8mmHg LVOT Diameter2.8 (1.8-2.4cm)Doppler AVA4.59cm2 Pulmonic Valve V21.02m/s Other Information Technically limited study due to body habitus. Conclusion Poor acoustic windows due to patient body habitus. Normal left ventricular size and dimension. Normal left ventricular systolic function. With estimat ed ejection fraction is 60%. There is normal diastolic function. Normal right ventricular size and dimension. Normal right ventricular systolic function. Normal biatrial size and dimension. Normal aortic valve structure and function. Normal mitral valve structure and function. Normal tricuspid valve structure function. Pulmonary valve is grossly normal. No pericardial effusion.
--- NOTE | 2024-11-10 16:23 | DVHDSRES ---
Discharge Summary Date of Admission Resident Creating Document: DUY MURILLO RESDIENT Nov 09, 2024 at 13:21 Date of Discharge: Nov 10, 2024 Admitting Diagnosis Abdominal pain, of unknown etiology, syncope episode Labs/Diagnostic Data: Laboratory Results Test 11/10/24 15:01 11/10/24 03:13 11/09/24 14:14 11/09/24 11:10 Lactic Acid Level 0.9 mmol/L (0.4-2.0) White Blood Count 9.7 10^3/uL (4.4-10.8) Red Blood Count 4.86 10^6/uL (4.5-5.90) Hemoglobin 14.8 g/dL (13.5-17.5) Hematocrit 43.2 % (41.0-53.0) Mean Corpuscular Volume 88.9 fL (80.0-100.0) Mean Corpuscular Hemoglobin 30.4 pg (28.0-32.0) Mean Corpuscular Hemoglobin Concent 34.2 g/dL (32.0-36.0) Red Cell Distribution Width 13.5 % (11.8-14.3) Platelet Count 274 10^3/uL (140-450) Mean Platelet Volume 7.8 fL (6.9-10.8) Neutrophils (%) (Auto) 69.8 % (37.0-80.0) Lymphocytes (%) (Auto) 19.9 % (10.0-50.0) Monocytes (%) (Auto) 8.6 % (0.0-12.0) Eosinophils (%) (Auto) 1.3 % (0.0-7.0) Basophils (%) (Auto) 0.4 % (0.0-2.0) Neutrophils # (Auto) 6.7 10 ^3/uL (1.6-8.6) Lymphocytes # (Auto) 1.9 10 ^3/uL (0.4-5.4) Monocytes # (Auto) 0.8 10 ^3/uL (0-1.3) Eosinophils # (Auto) 0.1 10 ^3/uL (0-0.8) Basophils # (Auto) 0 10 ^3/uL (0-0.2) Nucleated Red Blood Cells 0.0 % Sodium Level 141 mmol/L (136-145) Potassium Level 3.5 mmol/L (3.5-5.1) Chloride Level 108 mmol/L (98-107) Carbon Dioxide Level 26 mmol/L (20-31) Anion Gap 7 (5-15) Blood Urea Nitrogen 9 mg/dL (9-23) Creatinine 0.77 mg/dL (0.700-1.30) Glomerular Filtration Rate Calc 123 mL/min (>90) BUN/Creatinine Ratio 11.7 (10.0-20.0) Serum Glucose 93 mg/dL (74-106) Calcium Level 8.6 mg/dL (8.7-10.4) Total Bilirubin 0.6 mg/dL (0.2-1.0) Aspartate Amino Transferase (AST) 15 U/L (13-40) Alanine Aminotransferase (ALT) 16 U/L (7-40) Alkaline Phosphatase 58 U/L (46-116) Total Protein 6.3 g/dL (5.7-8.2) Albumin 3.9 g/dL (3.2-4.8) Plasma/Serum Blood Alcohol < 3.0 mg/dL (<10) Urine Color Yellow (Yellow) Urine Clarity Clear (Clear) Urine pH 7.0 (5.0-9.0) Urine Specific Pollock 1.031 (1.001-1.035) Urine Protein Trace (Negative) Urine Ketones Trace (Negative) Urine Blood Negative /uL (Negative) Urine Nitrite Negative (Negative) Urine Bilirubin Negative (Negative) Urine Urobilinogen Normal mg/dL (Negative) Urine Leukocyte Esterase Negative /uL (Negative) Urine RBC 1 /hpf (0 - 3) Urine WBC <1 /hpf (0 - 3) Urine Squamous Epithelial Cells None seen /hpf (<5) Urine Bacteria None seen /hpf (None Seen) Urine Mucus Few (None Seen) Urine Glucose Normal mg/dL (Normal) Urine Opiates Screen Neg (NEGATIVE) Urine Fentanyl Screen Neg (NEGATIVE) Urine Barbiturates Screen Neg (NEGATIVE) Urine Phencyclidine Screen Neg (NEGATIVE) Urine Amphetamines Screen Neg (NEGATIVE) Urine Benzodiazepines Screen Neg (NEGATIVE) Urine Cocaine Screen Neg (NEGATIVE) Urine Cannabinoids Screen Neg (NEGATIVE) SARS-CoV-2 Antigen (Rapid) Negative (NEGATIVE) Test 11/09/24 10:20 D-Dimer, Quantitative 0.29 mg/L FEU (0.0-0.49) Hemoglobin A1c 5.2 % A1C (<5.7) Magnesium Level 1.7 mg/dL (1.6-2.6) Triglycerides Level 198 mg/dL (< 150) Cholesterol Level 222 mg/dL (< 200) LDL Cholesterol 163 mg/dL (< 100) HDL Cholesterol 44 mg/dL (40-59) Lipase 67 U/L (12-53) Thyroid Stimulating Hormone (TSH) 1.51 uIU/mL (0.55-4.78) Other Laboratory Tests 11/10/24 03:13 Brief Hx & Hospital Course: This is a 29-year-old male patient who presents to emergency room with multiple chief complaints. The patient reports that on his way to work this morning at approximately 8:00 a.m. he began to experience epigastric pain. He reports shortly after having to use the restroom in which he noted new onset of diarrhea. Shortly after that, the patient reports feeling nauseous then had an episode where he vomited. While at work, the patient continued to feel abdominal pain and generalized weakness. He states that he had multiple episodes of emesis. While at work he reports grabbing onto a hand rail and having an assisted fall in which he did not hit his head or lose consciousness. The patient called his father and was brought to the emergency room for further evaluation. While in the emergency room waiting area, he reports feeling short of breath. Subsequently, he has another syncopal episode, but this time loss consciousness and only remembers waking up to people surrounding him. Hospital course: During admission, the patient was given gastroenteritis regime including antibiotics (ceftriaxone, metronidazole), IV normal saline, and put on telemetry for the observation of heart rhythm. Cardiology was consulted, performed echocardiogram which was normal, recommended that syncope was likely due to vasovagal secondary to dehydration. Bilateral carotid artery Doppler ultrasound were normal. Gastroenterology was consulted, recommended IV fluid for the possible gastroenteritis. During hospital., telemetry showed no any arrhythmia. On 11/10, the patient was clinically and hemodynamically stable. Discharge plan discussed with the patient and the patient was discharged. Discharge plan: Zofran, for nausea and vomiting as needed for 5 days Follow up with the PCP within 1 week after discharge. Follow up with the Cardiology given the Q-waves on inferior leads Consults/Reason for consult Cardiology: Syncope GI: Gastroenteritis Operations or Procedures [place] [address] Ph: [phone] DIAGNOSTIC IMAGING Diagnostic Imaging Report : [id number] Signed PATIENT: ALVARO BRUNO ACCT: [id number] UNIT: [id number] : 1995 LOC: ER ROOM / BED: / AGE / SEX: 29 / M ADM STATUS: REG ER SERVICE 1050 ORDERING PHYSICIAN: VITALIY PARSON MD PROCEDURE(s): CXRP - CHEST PORTABLE REASON: sob ORDER NUMBER(s): [id number], ACCESSION NUMBER(s): [id number] CHEST RADIOGRAPH Indication: sob Technique: Single frontal view of the chest was obtained Comparison: None FINDINGS: Lines and Tubes: None Lungs: No focal consolidation. Pleura: No effusion. No pneumothorax. Cardiomediastinal contours: Unremarkable Bones: No acute osseous abnormality. IMPRESSION: 1. No radiographic evidence of acute cardiopulmonary disease. HS:Y ATED BY: FATUMA MOTA DO DICTATED DATE/TIME: 11/09/24 110 SIGNED BY: FATUMA MOTA DO SIGNED DATE/TIME: 11/09/24 110 CC: [place] [address] Ph: [phone] DIAGNOSTIC IMAGING Diagnostic Imaging Report : [id number] Signed PATIENT: ALVARO BRUNO ACCT: [id number] UNIT: [id number] : 1995 LOC: ER ROOM / BED: / AGE / SEX: 29 / M ADM STATUS: REG ER SERVICE 1050 ORDERING PHYSICIAN: VITALIY PARSON MD PROCEDURE(s): GBUS - GALLBLADDER REASON: pain ORDER NUMBER(s): [id number], ACCESSION NUMBER(s): [id number] INDICATION: pain TECHNIQUE: Multiple real-time sonographic images were obtained of the right upper quadrant. COMPARISON: None FINDINGS: The liver demonstrates slightly increased echogenicity without focal mass lesions. The liver measures 16.8 cm. There is no intrahepatic or extrahepatic ductal dilatation. The common duct measures 6 mm. The gallbladder is without evidence of stone or sludge. The gallbladder wall measures 1 mm and is within normal limits. Concrete Block Molder notes a negative sonographic chang's sign. The right kidney measures 12.1 cm. The right kidney is normal in contour, size, and shape. The echogenicity is normal. There is no hydronephrosis. The pancreas is not well visualized due to overlying bowel gas. IMPRESSION: 1. No sonographic evidence of gallstones or acute cholecystitis. 2. CBD at upper limit of normal in size. 3. Mildly increased echogenicity of the liver, nonspecific, but most commonly seen in the setting of hepatic steatosis. HS:Y ATED BY: FATUMA MOTA DO DICTATED DATE/TIME: 11/09/241127 SIGNED BY: FATUMA MOTA DO SIGNED DATE/TIME: 11/09/241127 CC: [place] [address] Ph: [phone] DIAGNOSTIC IMAGING Diagnostic Imaging Report : [id number] Signed PATIENT: ALVARO BRUNO ACCT: [id number] UNIT: [id number] : 1995 LOC: TELE ROOM / BED: [address] [place] [address] AGE / SEX: 29 / M ADM STATUS: ADM IN SERVICE 1321 ORDERING PHYSICIAN: MELVIN LEIVA ASSEMBLY MACHINE OPERATOR PROCEDURE(s): CARCL - CAROTID DUPLX W COLOR DOP REASON: Syncopal episodes ORDER NUMBER(s): [id number], ACCESSION NUMBER(s): [id number] Carotid Duplex Date: 11/09/2024 02:00 PM Clinical History: Syncopal episodes Comparison: None Technique: Duplex Doppler evaluation of the extracranial carotid and vertebral arteries including color Doppler and spectral/pulsed waveform analysis was performed. Findings: RIGHT SIDE: The peak systolic velocities are 103 cm/s in the distal CCA and 93 cm/s in the proximal ICA.The ICA/CCA ratio is less than 1. The external carotid artery is patent with peak systolic velocity of 138 cm/s proximally. There is appropriate antegrade flow in the right vertebral artery. LEFT SIDE: The peak systolic velocities are 104 cm/s in the distal CCA and 93 cm/s in the proximal ICA.. The ICA/CCA ratio is less than 1. The external carotid artery is patent with peak systolic velocity of 136 cm/s proximally. There is appropriate antegrade flow in the left vertebral artery. IMPRESSION: 1. No hemodynamically significant stenosis noted in the right carotid system. 2. No hemodynamically significant stenosis noted in the left carotid system. 3. Reference: Radiology 2003; [id number] HS:Y ATED BY: FATUMA MOTA DO DICTATED DATE/TIME: 11/09/241426 SIGNED BY: FATUMA MOTA DO SIGNED DATE/TIME: 11/09/241426 CC: [place] [address] Ph: [phone] DIAGNOSTIC IMAGING Diagnostic Imaging Report : [id number] Signed PATIENT: ALVARO BRUNO ACCT: [id number] UNIT: [id number] : 1995 LOC: [facility] ROOM / BED: [address] [place] [address] AGE / SEX: 29 / M ADM STATUS: ADM IN SERVICE 56 ORDERING PHYSICIAN: TERA ASHBY PROCEDURE(s): ECIDC - ECHO 2D MODE CARDIAC DOP REASON: Evaluate cardiac function ORDER NUMBER(s): [id number], ACCESSION NUMBER(s): [id number] APPROVED REPORT EXAM: Two-dimensional and M-mode echocardiogram with Doppler and color Doppler. Blood Pressure: 125/63 mmHg INDICATION Eval for cardiac function RISK FACTORS Height: 65, Weight: 262 DIMENSIONS LVDd 5.4 (3.8-5.7cm) LA (2D) (1.9-4.0cm) Aortic Root 4.1 (2.0- 3.7cm) LVDs 4.0 (2.5-4.0cm) LA (MM) (1.9-4.0cm) Aortic Cusp Exc 2.4 (1.5- 2.0cm) EF (%) 50.0 (55-70%) Rt. Atrium (1.9-4.0cm) Asc. Aorta cm Mitral Valve Mitral Mitral Stenosis E wave 0.85m/s MV Mean GR. mmHg A wave 0.59m/s MV Peak GR. 100mmHg E/A ratio 1.4 2D MVA cm2 DECEL Time 210ms PRESS 1/2 Time 53ms IVRT ms Dop MVA 4.14cm2 Aortic Valve Aortic Valve Aortic Stenosis V1 1.03m/s AO Mean GR. 4mmHg V2 1.38m/s AO Peak GR. 8mmHg LVOT Diameter 2.8 (1.8-2.4cm) Doppler RYAN 4.59cm2 Pulmonic Valve V2 1.02m/s Other Information Technically limited study due to body habitus. Conclusion Poor acoustic windows due to patient body habitus. Normal left ventricular size and dimension. Normal left ventricular systolic function. With estimated ejection fraction is 60%. There is normal diastolic function. Normal right ventricular size and dimension. Normal right ventricular systolic function. Normal biatrial size and dimension. Normal aortic valve structure and function. Normal mitral valve structure and function. Normal tricuspid valve structure function. Pulmonary valve is grossly normal. No pericardial effusion. SIGNED BY: TAZ HUGGINS MD SIGNED DATE/TIME: 11/10/24 0490 CC: Condition at Discharge: Good Final Diagnosis/Problems List Sirs, likely due to gastroenteritis Gastroenteritis likely due to viral/bacterial Syncope, likely vasovagal, likely due to dehydration secondary to gastroenteritis Ruled out structural heart disease Dyslipidemia Morbid obesity Abdominal pain, likely due to gastroenteritis Diarrhea, likely due to gastroenteritis Ruled out pancreatitis Tachycardia, due to dehydration Discharge Disposition: Home Discharge Instruct/Medications Diet: Cardiac 2g Na,low cholest Activity: No Restrictions, As Tolerated Follow Up/Referral: Follow up with the PCP within 1 week after discharge Medications: Zofran for 5 days, as needed, for nausea/vomiting Discharge Statement: "Patient was advised to return to the ER or call 911 if any headaches, dizziness, shortness of breath, chest pain, abdominal pain, bleeding, fevers, or worsening of medical condition. Patient was counseled about treatment plan, medications, possible side effects, patientverbalized understanding. All questions were answered to the best of my ability. This discharge took greater then 30 minutes in planning, reviewing documentation, counseling the patient, and discussing with other team members." ASSESSMENT ASSESSMENT Assessment Gastroenteritis Date of Service: Nov 10, 2024 Billing Provider: LAURENCE YOUNG MD Common Visit Codes: 83148-QVA/OBS DISCH DAY >30min DUY MURILLO Nov 10, 2024 16:23 LAURENCE YOUNG MD Nov 14, 2024 11:52
[2024-11-10 17:08] VITALS: BP 122/59; PULSE 82; RESP 16; TEMP 97.9; O2SAT 97
--- NOTE | 2024-11-11 13:41 | ECG ---
[facility] Test Date: 2024-11-09 Test Time: 12:41:28 Pat Name: ALVARO BRUNO Department: er Room: 0270T B Gender: M Cloth Shrinker: archie : 1995 Requested By: VITALIY PARSON Order Number: [id number] Reading MD: Kavon Ludwig Measurements Intervals [place] Rate: 107 P: 7 IL: 119 QRS: 76 QRSD: 105 T: 8 QT: 330 QTc: 441 Interpretive Statements Sinus tachycardia Inferior infarct, old Electronically Signed On 11-11-2024 16:43:50 PST by Kavon Ludwig Please click the below link to view image of tracing.
[2024-11-11] MEDS ORDERED: ZOFR4T PO (15:16)
--- NOTE | 2024-11-11 17:54 | DVHPN2 ---
Progress Note - Dictate Date Seen: Nov 10, 2024 (And was seen at bedside on at 9:00 a.m.) Has the PT tested + for MRSA If YES, has PT been informed?: No Medical Necessity Reason Pt with a Central, PICC or Fol: No Subjective Patient is seen at bedside He is resting comfortably He has no further nausea vomiting and his abdominal pain has improved Patient is feeling hungry and he wants to eat vital signs Vital Sign Date Time Temp Pulse Resp B/P (MAP) Pulse Ox O2 Delivery O2 Flow Rate FiO2 11/10/24 17:08 97.9 82 16 122/59 (80) 97 97.9 11/10/24 08:00 Room Air* 0 21 Total Intake and Output 11/10/24 11/10/24 11/11/24 15:00 23:00 07:00 Intake Total 1100 ml 750 ml Balance 1100 ml 750 ml objective General Appearance: Alert, Oriented X3, Cooperative,no distress HEENT: Atraumatic, PERRLA Respiratory: Clear to auscultation, Normal air movement Cardiovascular: Normal S1, Normal S2, Other (Tachycardia) Abdominal: Normal bowel sounds, Soft, Other (epigastric pain, nausea) Extremities: No clubbing, No cyanosis, No edema, Normal pulses Skin: No rashes, No breakdown, No significant lesion Neuro: Normal gait, Normal speech, Strength at 5/5 X4 ext Psych/Mental Status: Mental status NL, Mood NL laboratory and microbiology Laboratory Tests 11/10/24 03:13 Test 11/10/24 03:13 Range/Units Serum Glucose 93 74-106 mg/dL Problems(with codes): (1) Pancreatitis (2) Leukocytosis (3) Abdominal pain of unknown etiology (4) Syncopal episodes (5) Vasovagal syncope (6) Diarrhea (7) Dehydration Prognosis Assessment plan Patient likely had acute viral gastroenteritis that is resolving this caused vasovagal to be due to dehydration Patient is feeling much better I offered the patient a possible endoscopy today however patient states he feels better need does not want to undergo the procedure We are going to start him on a clear liquid diet and advance as tolerated Outpatient follow up with me as needed Plan discussed with: Patient, Other (Nurse) VAHE SIMS MD Nov 11, 2024 17:54
== END 2024-11-10 19:00 | disposition home or self-care (01) | DRG 248 ==
LOC: ER 09:59 → TELE 13:21 → TELE-WESTW 13:24
PROVIDERS: ADMIT Student in an Organized Health Care Education/Training Program; ATTEND Student in an Organized Health Care Education/Training Program
DX: A04.9 Bacterial intestinal infection, unspecified (principal); A08.4 Viral intestinal infection, unspecified; E66.01 Morbid (severe) obesity due to excess calories; E78.5 Hyperlipidemia, unspecified; E86.0 Dehydration; Z68.41 Body mass index [BMI] 40.0-44.9, adult; Z79.899 Other long term (current) drug therapy
CPT/HCPCS: 36415; 71045; 76705; 80053; 80061; 80307; 80320; 81001; 83036; 83605; 83690; 83735; 84443; 85025; 85379; 87426; 93005; 93306; 93886; 96374; G0378; J3490